=== PATIENT | female | born 1975 | race Caucasian/White ===

== ENCOUNTER 2017-12-02 09:34 | Emergency (ER) | payer OTHER ==
[~2017-12-02] VITALS: Ht 160 cm; Wt 88.9 kg
[~2017-12-02 09:34] MED LIST: CIPRO500 MG PO; CYMBALTA20 MG PO; FLEXERIL PO; FLOMAX0.4 MG PO; LEXAPRO 10 MG T10 M2 PO; NORCO 5-325 TA1 EAC1 PO; NORCO 5-325 TA1 EACH PO; PHENERGAN 25 MG25 M1 PO; PREDNISONE 20 M20 M1 PO; PROAIR HFA8.5 GM INH; ULTRAM 50MG TAB50 MG PO; ZPAK PO
[2017-12-02] MEDS ORDERED: CYMBALTA60 MG PO (09:57)
[2017-12-02] MEDS ORDERED: [UNRECOGNIZED DRUG - CODE] PO (09:59)
[2017-12-02] MEDS ORDERED: NORCO 5-325 TA1 EACH PO (11:16)
[2017-12-02 11:21] VITALS: BP 129/87
== END 2017-12-02 11:22 | disposition home or self-care (01) ==
LOC: M.ERS 09:34
DX: S63.502A Unspecified sprain of left wrist, initial encounter (principal); Z87.442 Personal history of urinary calculi; Z91.040 Latex allergy status; Z88.6 Allergy status to analgesic agent; W01.0XXA Fall on same level from slipping, tripping and stumbling without subsequent striking against object, initial encounter; Y93.89 Activity, other specified; Y92.89 Other specified places as the place of occurrence of the external cause; Y99.8 Other external cause status